=== PATIENT | female | born 1990 | race Two or more races ===

== ENCOUNTER 2017-05-06 19:09 | Emergency (ER) ==
[2017-05-06 21:41] LABS: APPEARANCE,URINE SLIGHTLY-CLOUDY; BILIRUBIN,URINE NEGATIVE (NEGATIVE); GLUCOSE, URINE NEGATIVE (NEGATIVE); KETONES,URINE NEGATIVE (NEGATIVE); LEUKOCYTE ESTERASE,URINE NEGATIVE (NEGATIVE); NITRITE,URINE NEGATIVE (NEGATIVE); PROTEIN,URINE NEGATIVE (NEGATIVE); URINE SPECIFIC GRAVITY 1.026; UROBILINOGEN,URINE NEGATIVE mg/dL (<2.0)
== END 2017-05-06 22:05 | disposition left against medical advice (07) ==
LOC: ER 19:09
DX: Z53.9 Procedure and treatment not carried out, unspecified reason (principal); R10.9 Unspecified abdominal pain
CPT/HCPCS: 81001; 81025

== ENCOUNTER 2017-09-25 19:11 | Outpatient (CLI) | payer MEDICAID ==
[2017-09-25 20:21] LABS: APPEARANCE,URINE SLIGHTLY-CLOUDY; BILIRUBIN,URINE NEGATIVE (NEGATIVE); GLUCOSE, URINE NEGATIVE (NEGATIVE); KETONES,URINE NEGATIVE (NEGATIVE); LEUKOCYTE ESTERASE,URINE NEGATIVE (NEGATIVE); NITRITE,URINE NEGATIVE (NEGATIVE); PROTEIN,URINE NEGATIVE (NEGATIVE); URINE SPECIFIC GRAVITY 1.016; UROBILINOGEN,URINE NEGATIVE mg/dL (<2.0)
[2017-09-25 20:33] LABS: URINE BARBITURATES SCREEN NEGATIVE; URINE METHADONE SCREEN NEGATIVE; URINE OPIATES LOW NEGATIVE; URINE PHENCYCLIDINE SCREEN NEGATIVE
== END 2017-09-25 21:01 | disposition home or self-care (01) ==
LOC: LC 19:11
PROVIDERS: ATTEND Obstetrics & Gynecology
PROC: 4A1HXCZ Monitoring of Products of Conception, Cardiac Rate, External Approach (ICD-10-PCS; principal; 2017-09-25)
DX: O47.03 False labor before 37 completed weeks of gestation, third trimester (principal); Z3A.32 32 weeks gestation of pregnancy
CPT/HCPCS: 80307; 81001

== ENCOUNTER 2017-10-18 15:56 | Outpatient (CLI) | payer MEDICAID ==
[2017-10-18 16:50] LABS: APPEARANCE,URINE SLIGHTLY-CLOUDY; BILIRUBIN,URINE NEGATIVE (NEGATIVE); GLUCOSE, URINE NEGATIVE (NEGATIVE); KETONES,URINE NEGATIVE (NEGATIVE); LEUKOCYTE ESTERASE,URINE SMALL (NEGATIVE); NITRITE,URINE NEGATIVE (NEGATIVE); PROTEIN,URINE NEGATIVE (NEGATIVE); URINE SPECIFIC GRAVITY 1.009; UROBILINOGEN,URINE NEGATIVE mg/dL (<2.0)
[2017-10-18 17:00] LABS: BACTERIA,URINE TRACE /HPF; WBC,URINE RARE /HPF
[2017-10-18 17:04] LABS: URINE BARBITURATES SCREEN NEGATIVE; URINE METHADONE SCREEN NEGATIVE; URINE OPIATES LOW NEGATIVE; URINE PHENCYCLIDINE SCREEN NEGATIVE
== END 2017-10-18 17:19 | disposition home or self-care (01) ==
LOC: LC 15:56
PROVIDERS: ATTEND Student in an Organized Health Care Education/Training Program
PROC: 4A1HXCZ Monitoring of Products of Conception, Cardiac Rate, External Approach (ICD-10-PCS; principal; 2017-10-18)
DX: O26.893 Other specified pregnancy related conditions, third trimester (principal); R10.2 Pelvic and perineal pain; O24.419 Gestational diabetes mellitus in pregnancy, unspecified control; R51 Headache; Z3A.33 33 weeks gestation of pregnancy
CPT/HCPCS: 59025; 80307; 81001

== ENCOUNTER 2017-11-11 11:34 | Outpatient (CLI) | payer MEDICAID ==
[2017-11-11 12:12] LABS: APPEARANCE,URINE SLIGHTLY-CLOUDY; BILIRUBIN,URINE NEGATIVE (NEGATIVE); COLOR,URINE YELLOW; GLUCOSE, URINE NEGATIVE (NEGATIVE); KETONES,URINE NEGATIVE (NEGATIVE); LEUKOCYTE ESTERASE,URINE TRACE (NEGATIVE); NITRITE,URINE NEGATIVE (NEGATIVE); PROTEIN,URINE NEGATIVE (NEGATIVE); URINE SPECIFIC GRAVITY 1.013; UROBILINOGEN,URINE NEGATIVE mg/dL (<2.0)
--- NOTE | 2017-11-11 12:34 | Non Stress Test Report ---
Non Stress Test Datetime Report Generated by CPN: 11/11/2017 12:34 DEMOGRAPHIC EGA NST: 36.3 EGA NST: 33.0 INDICATION Indication for Study: Ordered by Provider Indication for Study: Other Indication for Study (NST) Other: Labor Check MONITORING Monitor Explained: Monitor Explained; Test Explained; Patient Verbalized Understanding Monitor Explained: Monitor Explained; Test Explained; Patient Verbalized Understanding Time on Monitor: 11/11/2017 11:55 Time on Monitor: 10/18/2017 16:14 Time off Monitor: 11/11/2017 12:17 NST Duration: 22 NST INTERVENTIONS NST Interventions: PO Hydration NST Interventions: PO Hydration; Reposition Patient Physician Notified NST: Jonatan Rios CNM Physician Notified NST: Dr. Bueno BABY A: [id number] BABY A Movement : Present Movement : Present Contraction Frequency : 2-3 Contraction Frequency : 0 FHR Baseline : 155 FHR Baseline : 150 Accelerations : 15X15 Accelerations : 15X15 Decelerations : None Decelerations : None Variability : Moderate 6-25bpm Variability : Moderate 6-25bpm NST Review: Meets Criteria for Reactive NST NST Review: Meets Criteria for Reactive NST NST Review and Verified By : Carline Angel RN NST Results: Reactive NST Results: Reactive NST REPORT Report Trigger: Send Report
[2017-11-11 12:50] LABS: URINE AMPHETAMINES SCREEN NEGATIVE; URINE BARBITURATES SCREEN NEGATIVE; URINE BENZODIAZEPINES SCREEN NEGATIVE; URINE COCAINE SCREEN NEGATIVE; URINE MARIJUANA (THC) SCREEN NEGATIVE; URINE METHADONE SCREEN NEGATIVE; URINE PHENCYCLIDINE SCREEN NEGATIVE
== END 2017-11-11 13:24 | disposition home or self-care (01) ==
LOC: LC 11:34
PROVIDERS: ATTEND Obstetrics & Gynecology Gynecology
PROC: 4A1HXCZ Monitoring of Products of Conception, Cardiac Rate, External Approach (ICD-10-PCS; principal; 2017-11-11)
DX: O47.03 False labor before 37 completed weeks of gestation, third trimester (principal); Z3A.36 36 weeks gestation of pregnancy
CPT/HCPCS: 59025; 80307; 81005

== ENCOUNTER 2017-11-18 06:04 | Outpatient (CLI) | payer MEDICAID ==
[2017-11-18 06:37] LABS: AMORPHOUS SEDIMENT,URINE TRACE /HPF; APPEARANCE,URINE SLIGHTLY-CLOUDY; BILIRUBIN,URINE NEGATIVE (NEGATIVE); COLOR,URINE STRAW; GLUCOSE, URINE NEGATIVE (NEGATIVE); KETONES,URINE NEGATIVE (NEGATIVE); LEUKOCYTE ESTERASE,URINE SMALL (NEGATIVE); NITRITE,URINE NEGATIVE (NEGATIVE); PROTEIN,URINE NEGATIVE (NEGATIVE); URINE SPECIFIC GRAVITY 1.005; UROBILINOGEN,URINE NEGATIVE mg/dL (<2.0)
[2017-11-18 06:51] LABS: URINE AMPHETAMINES SCREEN NEGATIVE; URINE BARBITURATES SCREEN NEGATIVE; URINE BENZODIAZEPINES SCREEN NEGATIVE; URINE COCAINE SCREEN NEGATIVE; URINE MARIJUANA (THC) SCREEN NEGATIVE; URINE METHADONE SCREEN NEGATIVE; URINE PHENCYCLIDINE SCREEN NEGATIVE
--- NOTE | 2017-11-18 09:44 | L&D Progress Notes ---
PROGRESS NOTES Datetime Report Generated by CPN: 11/18/2017 09:44 PROGRESS NOTE Vital Signs : Reviewed Comment: 27 yo presents with post coital contractions history- hx of ptl/ demise, maternal obesity,gestational diabetes EDC 12/06/17 EGA 37. abdomen nontender FHTS 140s average variability uterine irritability noted pt reports some pain cervical exam unchanged options reviewed with pt offered pain medicine pt declines at this time d/c home with instructions VAGINAL EXAM Dilatation: 2 Effacement: 50 Station: -1 MEMBRANES Membranes: Intact FETUS A FHR - Baseline: 140 Monitoring: External US Variability: Moderate 6-25bpm Accelerations: 15X15 Decelerations: None FHR Category: Category I : 37.0 SIGNATURE SIGNATURE: [id number];[id number] SIGNATURE: [id number] Assignment: Rosita Bueno MD Signature: with User ID: [email or web address] : with User ID: [email or web address]
--- NOTE | 2017-11-18 09:54 | Non Stress Test Report ---
Non Stress Test Datetime Report Generated by CPN: 11/18/2017 09:53 DEMOGRAPHIC EGA NST: 37.3 INDICATION Indication for Study: Ordered by Provider Indication for Study (NST) Other: lc MONITORING Monitor Explained: Monitor Explained; Test Explained; Patient Verbalized Understanding Time on Monitor: 11/18/2017 08:45 Time off Monitor: 11/18/2017 09:15 NST Duration: 30 NST INTERVENTIONS BABY A: [id number] BABY A Movement : Present Contraction Frequency : irreg FHR Baseline : 145 Accelerations : 15X15 Decelerations : None Variability : Moderate 6-25bpm NST Review: Meets Criteria for Reactive NST NST Review and Verified By : Carline Angel RN NST Results: Reactive NST REPORT Report Trigger: Send Report
== END 2017-11-18 09:56 | disposition home or self-care (01) ==
LOC: LC 06:04
PROVIDERS: ATTEND Obstetrics & Gynecology
PROC: 4A1HXCZ Monitoring of Products of Conception, Cardiac Rate, External Approach (ICD-10-PCS; principal; 2017-11-18)
DX: O24.419 Gestational diabetes mellitus in pregnancy, unspecified control (principal); Z3A.37 37 weeks gestation of pregnancy
CPT/HCPCS: 59025; 80307; 81001

== ENCOUNTER 2017-11-29 18:16 | Inpatient (IN) | payer MEDICAID ==
[2017-11-29] MEDS ORDERED: OXYTOCIN/NORMAL SALINE 20 UNIT/1,000 ML RTUINJ IV PRN (18:19)
[2017-11-29] MEDS ORDERED: RINGERS SOLUTION,LACTATED 1,000 ML IV PRN (18:19)
[2017-11-29] MEDS ORDERED: RINGERS SOLUTION,LACTATED 300 ML IV ONE (18:19)
[2017-11-29 18:50] LABS: ABSOLUTE BASOPHILS # (AUTO) 0.1 10^3/uL (0.0-0.2); ABSOLUTE EOSINOPHILS # (AUTO) 0.1 10^3/uL (0.0-0.6); ABSOLUTE LYMPHOCYTES (AUTO) 1.9 10^3/uL (0.5-4.7); ABSOLUTE MONOCYTES (AUTO) 0.6 10^3/uL (0.1-1.4); ABSOLUTE NEUT (AUTO) 7.8 10^3/uL (1.7-8.2); BASOPHILS % (AUTO) 0.5 % (0-2); EOSINOPHILS % (AUTO) 0.9 % (0-6); HEMATOCRIT 34.7 % (36.0-47.0); HEMOGLOBIN 11.8 g/dL (12.0-15.5); LYMPHOCYTES % (AUTO) 17.9 % (13-45); MEAN CORPUSCULAR HEMOGLOBIN 29.5 pg (27.0-33.4); MEAN CORPUSCULAR VOLUME 87 fl (80-97); MONOCYTES % (AUTO) 5.8 % (3-13); PLATELET COUNT 246 10^3/uL (150-450); RED CELL DISTRIBUTION WIDTH 14.8 % (11.5-14.0); SEGMENTED NEUTROPHILS % (AUTO) 74.9 % (42-78); TOTAL CELLS COUNTED % (AUTO) 100 %; WHITE BLOOD COUNT 10.5 10^3/uL (4.0-10.5)
[2017-11-29 18:56] LABS: APPEARANCE,URINE CLEAR; BILIRUBIN,URINE NEGATIVE (NEGATIVE); COLOR,URINE YELLOW; GLUCOSE, URINE NEGATIVE (NEGATIVE); KETONES,URINE NEGATIVE (NEGATIVE); LEUKOCYTE ESTERASE,URINE SMALL (NEGATIVE); NITRITE,URINE NEGATIVE (NEGATIVE); PROTEIN,URINE NEGATIVE (NEGATIVE); URINE SPECIFIC GRAVITY 1.009; UROBILINOGEN,URINE NEGATIVE mg/dL (<2.0)
[2017-11-29 19:13] LABS: URINE AMPHETAMINES SCREEN NEGATIVE; URINE BARBITURATES SCREEN NEGATIVE; URINE BENZODIAZEPINES SCREEN NEGATIVE; URINE COCAINE SCREEN NEGATIVE; URINE MARIJUANA (THC) SCREEN NEGATIVE; URINE METHADONE SCREEN NEGATIVE; URINE PHENCYCLIDINE SCREEN NEGATIVE
[2017-11-29] MEDS ORDERED: ACETAMINOPHEN 325 MG TABLET PO ONE (19:40)
[2017-11-29] MEDS ORDERED: ACETAMINOPHEN 325 MG TABLET ONE (19:42)
[2017-11-29] MEDS ORDERED: DINOPROSTONE 10 MG VAGINAL INSERT.SR ONE (19:43)
[2017-11-29] MEDS: DINOPROSTONE 10 MG VAGINAL INSERT.SR PV PRN (19:48)
[2017-11-29] MEDS ORDERED: MAG HYDROX/AL HYDROX/SIMETH SUSP 30 ML UDCUP PO ONE (19:57)
[2017-11-29] MEDS ORDERED: MAG HYDROX/AL HYDROX/SIMETH SUSP 30 ML UDCUP ONE (20:00)
[2017-11-29] MEDS ORDERED: INSULIN LISPRO 100 UNIT/ML 3 ML VIAL ONE ×3 (23:37→23:52)
[2017-11-30] MEDS ORDERED: INSULIN NPH (ISOPHANE), HUMAN 100 UNIT/ML 3 ML SUBCUT ONE (05:45)
[2017-11-30] MEDS: DINOPROSTONE 10 MG VAGINAL INSERT.SR PV PRN ×2 (08:20→14:55)
[2017-11-30] MEDS ORDERED: MISOPROSTOL 0.2 MG TABLET ONE (09:26)
[2017-11-30] MEDS ORDERED: OXYTOCIN/NORMAL SALINE 20 UNIT/1,000 ML RTUINJ ONE (09:26)
[2017-11-30] MEDS ORDERED: LIDOCAINE 1% INJ-PF (10 MG/ML) 30 ML SDV ONE (09:26)
[2017-11-30] MEDS ORDERED: FENTANYL/BUPIVACAINE/NS/PF 200 MCG/100 ML RTUINJ EPI ONE (09:42)
[2017-11-30] MEDS ORDERED: EPHEDRINE SULFATE INJ 50 MG/1 ML AMPULE ONE (09:42)
[2017-11-30] MEDS ORDERED: BUPIVACAINE HCL 0.25 % INJ/PF (2.5 MG/1 ML) 30 ML VIAL ONE (09:42)
--- NOTE | 2017-11-30 12:35 | Warning Signs in Babies ---
VOD Warning Signs Datetime Report Generated by N: 11/30/2017 12:35 VOD#608 -Warning Signs in Babies: Viewed with Parent(s)/Family (11/30/2017 12:34:Katy Hill RN)
[2017-11-30] MEDS: OXYTOCIN/NORMAL SALINE 20 UNIT/1,000 ML RTUINJ IV PRN ×2 (13:29→14:55)
--- NOTE | 2017-11-30 14:05 | Delivery Summary ---
Del Sum A-C Datetime Report Generated by CPN: 11/30/2017 14:05 DELIVERY PERSONNEL DELIVERY PERSONNEL: [id number] Delivery Doctor:: Olivia Horn MD Nurse Knobber Certified:: Vi Florentino CNM Labor and Delivery Nurse:: LITA Colon Labor and Delivery Nurse:: Katy Hill RN Medical Screener/WARDROBE SPECIALIST: Shana Arriaga, ST MATERNAL INFORMATION Delivery Anesthesia: Epidural Medications After Delivery: Pitocin Bolus-Please Comment Meds After Delivery Comment: Pitocin 20 units in 1000ml NS bolusing after delivery of placenta as ordered Estimated Blood Loss (ml): 200 Maternal Complications: None Provider Comments: ROSALINDA VIABLE MALE WITH SPONTANEOUS CRY. CORD DOUBLE CLAMPED AND CUT BY FOB. ADHERENT PLACENTA MANUALLY REMOVED INTACT WITH 3VC. NO LACERATIONS. MOTHER AND INFANT STABLE IN LABOR AND DELIVERY #1 LABOR SUMMARY EDC: 12/06/2017 00:00 No. Babies in Womb: 1 Attempted: No Labor Anesthesia: Epidural LABOR INFORMATION Reason for Induction: Maternal Diabetes Onset of Labor: 11/30/2017 10:05 Complete Dilatation: 11/30/2017 11:57 Cervical Ripening Agents: Cervidil Other Ripening Agents: cervidil Oxytocin: Induction Group B Beta Strep: negative Antibiotics # of Doses: 0 Steroids Given: None Reason Steroids Not Administered: Not Applicable Other Reason Not Administered: n/a MEMBRANES Membranes Rupture Method: Artificial Rupture of Membranes: 11/30/2017 10:23 Length of Rupture (hr): 1.67 Amniotic Fluid Color: Clear Amniotic Fluid Amount: Large Amniotic Fluid Odor: Normal STAGES OF LABOR Stage 1 hr: 1 Stage 1 min: 52 Stage 2 hr: 0 Stage 2 min: 6 Stage 3 hr: 0 Stage 3 min: 13 Total Time in Labor hr: 2 Total Time in Labor min: 11 VAGINAL DELIVERY Episiotomy: None Laceration #1: None Laceration Extension #1: N/A Laceration Repair: Not Applicable Sponge Count Correct: N/A Sharps Count Correct: N/A CSECTION DELIVERY Primary Indication: N/A Secondary Indication: N/A CSection Incidence: N/A Labor: N/A Elective: N/A CSection Incision: N/A BABY A INFORMATION Infant Delivery Date/Time: 11/30/2017 12:03 Method of Delivery: Vaginal Born in Route : No : N/A Forceps: N/A Vacuum Extraction: N/A Shoulder Dystocia : No PRESENTATION/POSITION BABY A Presentation: Cephalic Cephalic Presentation: Vertex Vertex Position: Left Occipital Anterior Breech Presentation: N/A PLACENTA INFORMATION BABY A Placenta Delivery Time : 11/30/2017 12:16 Placenta Method of Delivery: Manual Removal Placenta Status: Delivered SCORES BABY A Heart Rate 1 min: >100 bpm Resp Effort 1 min: Good Cry Reflex Irritability 1 min: Cough or Sneeze or Pulls Away Muscle Tone 1 min: Active Motion Color 1 min: Body [place], Extremities Blue Resuscitation Effort 1 min: Tactile Stimulation SCORE 1 MIN: 9 Heart Rate 5 min: >100 bpm Resp Effort 5 min: Good Cry Reflex Irritability 5 min: Cough or Sneeze or Pulls Away Muscle Tone 5 min: Active Motion Color 5 min: Body [place], Extremities Blue Resuscitation Effort 5 min: N/A SCORE 5 MIN: 9 INFORMATION BABY A Gestational Age at Delivery: 39.1 Gestational Status: Full Term- 39- 40.6 Weeks Outcome : Liveborn Condition : Stable Infant Sex: Male IDENTIFICATION BABY A Verification Date/Time: 11/30/2017 12:21 ID Band Number: [id number] Mother's Name Verified: Yes RN Verifying Infant: Sofia Yi RN/ CDante Angel, RN WEIGHT/LENGTH BABY A Birthweight (gm): 4370 Weight (lb): 9 Weight (oz): 10 Length (in): 20.25 Length (cm): 51.44 CORD INFORMATION BABY A No. Cord Vessels: 3 Nuchal Cord : N/A Cord Blood Taken: Yes-For Eval (Mom's Blood Type - or O+) Infant Suction: Mouth; Nose ASSESSMENT BABY A Complications: None Physical Findings at Delivery: Molding of the Head; Bruising Physical Findings- Other: bruising on face Respirations: Appears Normal Skin to Skin: Yes Skin to Skin Time (min): 30 Carpenter Inspector/ALS Called : No Care By: D Omayrajameelestebandarius RN BABY B INFORMATION : N/A SIGNATURES Assignment: Olivia Horn MD Signature: with User ID: [email or web address] : with User ID: [email or web address] : I was personally available for consultation and serving as supervising physician for the MLP.
[2017-11-30] MEDS ORDERED: PROMETHAZINE HCL 25 MG SUPP.RECT PR PRN (14:13)
[2017-11-30] MEDS ORDERED: NA PHOS,M-B/NA PHOS,DI-BA (ADULT) 133 ML ENEMA PR PRN (14:13)
[2017-11-30] MEDS ORDERED: MEASLES,MUMPS&RUBELLA VACC/PF 0.5 ML VIAL SUBCUT PRN (14:13)
[2017-11-30] MEDS ORDERED: MAGNESIUM HYDROXIDE SUSP 30 ML UDCUP PO PRN (14:13)
[2017-11-30] MEDS ORDERED: ZOLPIDEM TARTRATE 5 MG TABLET PO PRN (14:13)
[2017-11-30] MEDS ORDERED: PSEUDOEPHEDRINE HCL 30 MG TABLET PO PRN (14:13)
[2017-11-30] MEDS ORDERED: BENZOCAINE/MENTHOL AEROSOL SPRAY 56 ML TOP PRN (14:13)
[2017-11-30] MEDS ORDERED: DIBUCAINE 1% OINTMENT 28 GM TP PRN (14:13)
[2017-11-30] MEDS ORDERED: ACETAMINOPHEN WITH CODEINE #3 TABLET PO PRN ×2 (14:13)
[2017-11-30] MEDS ORDERED: OXYTOCIN/NORMAL SALINE 20 UNIT/1,000 ML RTUINJ IV PRN (14:13)
[2017-11-30] MEDS ORDERED: PROMETHAZINE HCL 25 MG TABLET PO PRN (14:13)
[2017-11-30] MEDS ORDERED: PROMETHAZINE HCL INJ 25 MG/1 ML VIAL IV PRN (14:13)
[2017-11-30] MEDS ORDERED: ACETAMINOPHEN 650 MG SUPP.RECT PR PRN (14:13)
[2017-11-30] MEDS ORDERED: DIPH/PERTUSS(ACELL)/TETANUS VAC/PF 0.5 ML SYR (>=10YO) IM PRN (14:13)
[2017-11-30] MEDS ORDERED: DIPHENHYDRAMINE HCL 25 MG CAPSULE PO PRN (14:13)
[2017-11-30] MEDS ORDERED: GLYCERIN/WITCH HAZEL LEAF 1 EACH MED..PAD TP PRN (14:13)
--- NOTE | 2017-11-30 14:35 | Admission Physical ---
Datetime Report Generated by CPN: 11/30/2017 14:35 CURRENT ADMISSION Chief Complaint: Scheduled Induction of Labor Indication for Induction: Maternal Diabetes Indication for Induction: Term, Intrauterine ; Induction of Labor Admit Plan: Admit to Unit; Initiate Labor Induction Protocol ALLERGIES Medication Allergies: Yes Medication Allergies: nifedipine (11/30/2017) Medication Allergies: nifedipine (11/18/2017) Medication Allergies: nifedipine (09/25/2017) Medication Allergies: No Known Allergies (05/06/2017) Latex: No Latex Allergies Food Allergies: N/A Environmental Allergies: N/A OBSTETRICAL HISTORY EDC: 12/06/2017 00:00 : 5 Para: 3 Term: 2 : 1 SAB: 1 IAB: 0 Ectopic: 0 Livin Cesareans: 0 VBACs: 0 Multiple Births: 0 Gestational Diabetes: Yes Rh Sensitization: No Incompetent Cervix: No WILIAM: No Infertility: No ART Treatment: No Uterine Anomaly: No IUGR: No Hx Previous C/S: No Macrosomia: No Hx Loss/Stillborn: No PIH: Yes Hx : No Placenta Previa/Abruption: Yes Depression/PP Depression: No PTL/PROM: No Post Hemorrhage: No Current Procedures: Ultrasound Obstetrical History Comments: G1- 2005 at 26 weeks, epidural G2- 2011 SAB G3- 2012 at 37 weeks, epidural G4- 2013 at 37 weeks, epidural G5- current SEE RECORDS Alcohol: No Marijuana : No Cocaine: No Other Illicit Drugs: No Cigarettes: Former Smoker. [id number] Cigarette Comments: Social smoker in teens MEDICAL HISTORY Diabetes: Yes Diabetes Type: Gestational Diabetes Blood Transfusion: No Pulmonary Disease (Asthma, TB): No Breast Disease: No Hypertension: No Copyright Expert Surgery: No Heart Disease: No Hosp/Surgery: No Autoimmune Disorder: No Anesthetic Complications: No Kidney Disease: No Abnormal Pap Smear: Yes Neuro/Epilepsy: No Psychiatric Disorders: Yes Other Medical Diseases: No Hepatitis/Liver Disease: No Significant Family History: No Varicosities/Phlebitis: No Trauma/Violence : No Thyroid Dysfunction: No Medical History Comments: Panic and anxiety disorder (not medicated); trigeminal neuralgia (pt to follow up with neurology); 04/2017 HSIL/CIN2/CIN3/CIS INFECTIOUS HISTORY Gonorrhea: No Genital Herpes: Yes Chlamydia: No Tuberculosis: No Syphilis: No Hepatitis: No HIV/AIDS Exposure: No Rash or Viral Illness: No HPV: Yes Infectious History Comments: HSV, never on valtrex- last outbreak 1st trimester Infectious History Comments: Last herpes outbreak was at the beginning of the PHYSICAL EXAM General: Normal HEENT: Normal Neurologic: Normal Thyroid: Normal Heart: Normal Lungs: Normal Breast: Deferred Back: Normal Abdomen: Normal Genitourinary Exam: Normal Extremities: Normal DTRs: Normal Pelvic Type: Adequate Vital Signs: Reviewed VAGINAL EXAM Dilatation: 2 Effacement: 50 Station: -1 MEMBRANES Membranes: Intact FETUS A EGA: 37.3 Monitoring: External US FHR- Baseline: 120 Variability: Moderate 6-25bpm FHR Category: Category I Presentation: Vertex Admit Comment: Admit for induction of labor. Cervadil tonight. PLANS FOR LABOR AND DELIVERY Labor and Delivery: Plan; Other, Specify Pain Management: Epidural Feeding Preference: Breast Benefit of Breast Feed Discussed: Yes Circumcision: No INFORMED CONSENT Signature: with User ID: [email or web address]
[2017-11-30] MEDS ORDERED: IBUPROFEN 800 MG TABLET ONE (15:28)
[2017-11-30] MEDS: FERROUS SULFATE 325 MG TABLET PO SCH (18:58)
[2017-11-30] MEDS: DOCUSATE SODIUM 100 MG CAPSULE PO SCH (18:58)
[2017-11-30] MEDS: FAMOTIDINE 20 MG TABLET PO SCH (21:35)
[2017-11-30] MEDS: IBUPROFEN 800 MG TABLET PO SCH (21:35)
[2017-12-01] MEDS: IBUPROFEN 800 MG TABLET PO SCH ×3 (05:30→23:06)
[2017-12-01 08:01] LABS: HEMATOCRIT 32.1 % (36.0-47.0); HEMOGLOBIN 10.8 g/dL (12.0-15.5); MEAN CORPUSCULAR HEMOGLOBIN 29.7 pg (27.0-33.4); MEAN CORPUSCULAR HGB CONC 33.6 g/dL (32.0-36.0); MEAN CORPUSCULAR VOLUME 88 fl (80-97); PLATELET COUNT 199 10^3/uL (150-450); RED BLOOD COUNT 3.64 10^6/uL (3.72-5.28); RED CELL DISTRIBUTION WIDTH 14.4 % (11.5-14.0); WHITE BLOOD COUNT 10.1 10^3/uL (4.0-10.5)
[2017-12-01] MEDS: FERROUS SULFATE 325 MG TABLET PO SCH ×2 (09:18→18:31)
[2017-12-01] MEDS: FAMOTIDINE 20 MG TABLET PO SCH ×2 (09:18→23:07)
[2017-12-01] MEDS: PRENATAL VITAMIN W DHA CAPSULE PO SCH (09:18)
[2017-12-01] MEDS: DOCUSATE SODIUM 100 MG CAPSULE PO SCH ×2 (09:18→18:32)
[2017-12-01] MEDS: SENNOSIDES/DOCUSATE 8.6-50 MG 1 EACH TABLET PO SCH (09:18)
--- NOTE | 2017-12-01 13:22 | PDOC PROGRESS REPORT ---
Subjective-OB Subjective: Post Delivery Day:1 27 year old. G5 now P4 s/p ppd1. Ambulating, voiding and without difficulty. Requesting regular diet, has been receiving diabetic diet while in patient but having cookies, kyr[place]z toast from [employer] and non-diabetic snacks. Denies any needs at this time Physical Exam (OB) Vital Signs: Temp Pulse Resp BP Pulse Ox 98.2 F 78 16 123/82 100 12/01/17 07:29 12/01/17 07:29 12/01/17 07:29 12/01/17 07:29 12/01/17 07:29 Intake & Output 11/30/17 12/01/17 12/02/17 06:59 06:59 06:59 Intake Total 500 Balance 500 Weight 100.1 kg - General General Appearance: Appears well In distress: None - PIH/Pre-Eclampsia DTR's: 2 + Clonus: Negative Headache: Absent Epigastric Pain: No Visual Changes: No - Episiotomy/Laceration Site Condition: N/A - Lochia Lochia Amount: Scant < 10 ml Lochia Color: Rubra/Red - Abdomen Description: Soft, Round Hernia Present: No Fundal Description: Firm Fundal Height: u/u - u/2 - Respiratory Respiratory Status: No respiratory distress - Extremities Upper extremity: Normal inspection Lower extremities: Normal inspection - Neurological Cognition: Normal Orientation: AAOx4 - Psychological Associated symptoms: Normal affect, Normal mood Objective-Diagnostic Laboratory: 12/01/17 07:41 12/01/17 07:41 WBC 10.1 RBC 3.64 L Hgb 10.8 L Hct 32.1 L MCV 88 MCH 29.7 MCHC 33.6 RDW 14.4 H Plt Count 199 Assessment and Plan(PN) - Assessment and Plan (1) Abnormal Papanicolaou smear of cervix with positive human papilloma virus ( HPV) test Is this a current diagnosis for this admission?: Yes Plan: pt. with HSIL/SHELLIE I/SHELLIE 3/CIS on pap declined colpo while . Reviewed Need for colpo at pp visit, pt. verbalized understanding. (2) Acute blood loss anemia Is this a current diagnosis for this admission?: Yes Plan: inc. dietary iron and FeSO4 supplementation. (3) Chronic hypertension affecting Is this a current diagnosis for this admission?: Yes Plan: continue to monitor for s/s of pre-e. (4) Anxiety Is this a current diagnosis for this admission?: Yes Plan: monitor for s/s of pp depression. (5) Diabetes mellitus affecting Qualifiers: Trimester: unspecified trimester Qualified Code(s): O24.919 - Unspecified diabetes mellitus in , unspecified trimester Is this a current diagnosis for this admission?: Yes Plan: delivered. Pt. was on NPH 10/31 and Novolog prior to delivery but has not received any insulin since admission and glucose is well controlled on diet alone. This morning's fasting glucose was 114 but was not a true fasting as patient had cookies before breakfast tray was brought to unit. Discussed importance of obtaining true fasting glucose values to determine follow up once discharged. Two hour pp was 100 this Am and highest recorded glucose 134 while admitted even with regular diet. Discussed with Dr. Bueno who agrees with plan to continue to hold insulin at this time and continue glucose checks pp and fasting tomorrow morning.Pt. asked questions and verbalized understanding. (6) Morbid obesity Is this a current diagnosis for this admission?: Yes Plan: pp care, order placed for SCDs (7) Status post induction of labor Is this a current diagnosis for this admission?: Yes Plan: delivered - Time Spent with Patient Time with patient: 15-25 minutes - Disposition Anticipated Discharge: Home Within: within 24 hours
[2017-12-01] MEDS ORDERED: ACETAMINOPHEN 325 MG TABLET PO PRN (23:37)
[2017-12-02] MEDS: IBUPROFEN 800 MG TABLET PO SCH ×2 (06:00→13:11)
[2017-12-02 09:00] VITALS: BP 131/79
[2017-12-02] MEDS: SENNOSIDES/DOCUSATE 8.6-50 MG 1 EACH TABLET PO SCH (10:20)
[2017-12-02] MEDS: FERROUS SULFATE 325 MG TABLET PO SCH (10:20)
[2017-12-02] MEDS: DOCUSATE SODIUM 100 MG CAPSULE PO SCH (10:20)
[2017-12-02] MEDS: PRENATAL VITAMIN W DHA CAPSULE PO SCH (10:20)
[2017-12-02] MEDS: FAMOTIDINE 20 MG TABLET PO SCH (10:24)
--- NOTE | 2017-12-02 11:06 | PDOC DISCHARGE SUMMARY ---
Final Diagnosis Discharge Date: 12/02/17 - Final Diagnosis (1) Chronic hypertension affecting Is this a current diagnosis for this admission?: Yes (2) Morbid obesity Is this a current diagnosis for this admission?: Yes (3) Status post induction of labor Is this a current diagnosis for this admission?: Yes Discharge Data - Discharge Medication Home Medications: Vit/Iron Fum/Folic AC [ Tablet] 1 each PO DAILY 09/25/17 Insulin Aspart [Novolog Insulin 100 Unit/1 ml 10 ml] 2 unit SUBCUT ACBRKFST 01/31 Insulin Aspart [Novolog Insulin 100 Unit/1 ml 10 ml] 4 unit SUBCUT AC 11/18/17 Insulin Aspart [Novolog Insulin 100 Unit/1 ml 10 ml] 6 unit SUBCUT ACSUPPER 01/31 NPH, Human Insulin Isophane [Novolin N (NPH) Insulin 100 unit/mL] 10 unit SUBCUT ACBRKFST 11/18/17 NPH, Human Insulin Isophane [Novolin N (NPH) Insulin 100 unit/mL] 16 unit SUBCUT ACSUPPER 11/18/17 Reason(s) for Admission: Induction of Labor Procedures: NST Intrapartum Procedure(s): Spontaneous Vaginal Delivery - Diagnosis Test Laboratory: Temp Pulse Resp BP Pulse Ox 97.6 F 80 15 131/79 H 100 12/02/17 07:40 12/02/17 07:40 12/02/17 07:40 12/02/17 07:40 12/02/17 07:40 11/29/17 11/29/17 12/01/17 18:23 18:33 07:41 RBC 4.00 3.64 L Hgb 11.8 L 10.8 L Hct 34.7 L 32.1 L Urine Opiates Screen NEGATIVE - Discharge information/Instructions Discharge Activity: Activity As Tolerated Discharge Diet: Regular Disposition: HOME, SELF-CARE Follow up with: [facility] in: 4
--- NOTE | 2017-12-02 11:25 | PDOC DISCHARGE SUMMARY ---
Final Diagnosis Discharge Date: 12/02/17 - Final Diagnosis (1) Chronic hypertension affecting Is this a current diagnosis for this admission?: Yes (2) Morbid obesity Is this a current diagnosis for this admission?: Yes (3) Status post induction of labor Is this a current diagnosis for this admission?: Yes Discharge Data - Discharge Medication Home Medications: Vit/Iron Fum/Folic AC [ Tablet] 1 each PO DAILY 09/25/17 Insulin Aspart [Novolog Insulin 100 Unit/1 ml 10 ml] 2 unit SUBCUT ACBRKFST 01/31 Insulin Aspart [Novolog Insulin 100 Unit/1 ml 10 ml] 4 unit SUBCUT AC 11/18/17 Insulin Aspart [Novolog Insulin 100 Unit/1 ml 10 ml] 6 unit SUBCUT ACSUPPER 01/31 NPH, Human Insulin Isophane [Novolin N (NPH) Insulin 100 unit/mL] 10 unit SUBCUT ACBRKFST 11/18/17 NPH, Human Insulin Isophane [Novolin N (NPH) Insulin 100 unit/mL] 16 unit SUBCUT ACSUPPER 11/18/17 Procedures: NST, Ultrasound Intrapartum Procedure(s): Spontaneous Vaginal Delivery - Diagnosis Test Laboratory: Temp Pulse Resp BP Pulse Ox 97.6 F 80 15 131/79 H 100 12/02/17 07:40 12/02/17 07:40 12/02/17 07:40 12/02/17 07:40 12/02/17 07:40 11/29/17 11/29/17 12/01/17 18:23 18:33 07:41 RBC 4.00 3.64 L Hgb 11.8 L 10.8 L Hct 34.7 L 32.1 L Urine Opiates Screen NEGATIVE - Discharge information/Instructions Discharge Activity: Activity As Tolerated Discharge Diet: Regular Disposition: HOME, SELF-CARE Follow up with: [facility] in: 4
== END 2017-12-02 17:58 | disposition home or self-care (01) | DRG 774 ==
LOC: LR 18:16 → 2S 11-30 14:33
PROVIDERS: ADMIT Obstetrics & Gynecology; ATTEND Obstetrics & Gynecology
PROC: 4A1HXCZ Monitoring of Products of Conception, Cardiac Rate, External Approach (ICD-10-PCS; 2017-11-29)
PROC: 10E0XZZ Delivery of Products of Conception, External Approach (ICD-10-PCS; principal; 2017-11-30)
PROC: 3E033VJ Introduction of Other Hormone into Peripheral Vein, Percutaneous Approach (ICD-10-PCS; 2017-11-30)
PROC: 3E0P7GC Introduction of Other Therapeutic Substance into Female Reproductive, Via Natural or Artificial Opening (ICD-10-PCS; 2017-11-30)
DX: O10.92 Unspecified pre-existing hypertension complicating childbirth (principal); Z68.41 Body mass index [BMI] 40.0-44.9, adult; E66.01 Morbid (severe) obesity due to excess calories; O99.344 Other mental disorders complicating childbirth; F41.9 Anxiety disorder, unspecified; O24.429 Gestational diabetes mellitus in childbirth, unspecified control; Z28.21 Immunization not carried out because of patient refusal; Z12.4 Encounter for screening for malignant neoplasm of cervix; Z87.891 Personal history of nicotine dependence; Z3A.39 39 weeks gestation of pregnancy; Z37.0 Single live birth
CPT/HCPCS: 36415; 80307; 81005; 82962; 85025; 85027; 86592; 86850; 86900; 86901; 94760; J1815; J2590; J3490